=== PATIENT | male | born 1945 | race African-American/Black ===

== ENCOUNTER 2017-06-07 00:26 | Emergency (ER) | payer MEDICARE ==
--- NOTE | 2017-06-07 01:37 | ER Document Report ---
ED Extremity Problem, Lower - General Chief Complaint: Hip Pain Stated Complaint: hip pain Time Seen by Provider: 06/07/17 01:25 Notes: Patient is a 72-year-old male who comes emergency department for chief complaint of left leg pain. He states that he was moving logs several days ago , pain started afterwards, he states it does hurt to walk, he states he can situate his leg in such a way that he can sleep comfortably. He denies a fall or direct impact injury. Pain is persistent so he came to be evaluated. He does feel pain shoot down the side of his leg occasionally. He denies flank pain, abdominal pain, numbness, incontinence or inability to urinate, or fever. Patient is generally healthy, has a history of hypertension, CVA, his daughter is at bedside. TRAVEL OUTSIDE OF THE [place] IN LAST 30 DAYS: No - Related Data Allergies/Adverse Reactions: No Known Drug Allergies Allergy (Verified 06/07/17 00:27) Past Medical History - General Information source: Patient - Social History Smoking Status: Never Smoker Frequency of alcohol use: None Drug Abuse: None Lives with: Family Family History: Reviewed & Not Pertinent - Past Medical History Cardiac Medical History: Reports: Hx Hypertension Denies: Hx Coronary Artery Disease, Hx Heart Attack Endocrine Medical History: Denies: Hx Diabetes Mellitus Type 1, Hx Diabetes Mellitus Type 2 Psychiatric Medical History: Denies: Hx Depression - Immunizations Hx Diphtheria, Pertussis, Tetanus Vaccination: Yes Review of Systems - Review of Systems Constitutional: No symptoms reported EENT: No symptoms reported Cardiovascular: No symptoms reported Respiratory: No symptoms reported Gastrointestinal: No symptoms reported Genitourinary: No symptoms reported Male Genitourinary: No symptoms reported Musculoskeletal: See HPI Skin: No symptoms reported Hematologic/Lymphatic: No symptoms reported Neurological/Psychological: No symptoms reported Physical Exam - Vital signs Vitals: Temp Pulse Resp BP Pulse Ox 98.3 F 49 L 20 147/90 H 99 06/07/17 00:32 06/07/17 00:32 06/07/17 00:32 06/07/17 00:32 06/07/17 00:32 Interpretation: Normal - General General appearance: Appears well, Alert - HEENT Head: Normocephalic, Atraumatic Eyes: Normal Pupils: PERRL - Respiratory Respiratory status: No respiratory distress Chest status: Nontender Breath sounds: Normal Chest palpation: Normal - Cardiovascular Rhythm: Regular Heart sounds: Normal auscultation Murmur: No - Abdominal Inspection: Normal Distension: No distension Bowel sounds: Normal Tenderness: Nontender Organomegaly: No organomegaly - Back Back: Normal, Nontender - Extremities General upper extremity: Normal inspection, Nontender, Normal color, Normal ROM , Normal temperature General lower extremity: Other - Mild tenderness over the left proximal femoral bursa area and over the proximal thigh, no tenderness noted over the extremity otherwise, normal hip, knee, ankle range of motion, normal distal neurovascular exam. No traumatic findings. - Neurological Neuro grossly intact: Yes Cognition: Normal Orientation: AAOx4 [place] Coma Scale Eye Opening: Spontaneous [place] Coma Scale Verbal: Oriented [place] Coma Scale Motor: Obeys Commands Codey Coma Scale Total: 15 Speech: Normal Motor strength normal: LUE, RUE, LLE, RLE Sensory: Normal - Psychological Associated symptoms: Normal affect, Normal mood - Skin Skin Temperature: Warm Skin Moisture: Dry Skin Color: Normal Course - Re-evaluation Re-evalutation: Patient well-appearing, declines medication at this time, has full range of motion of the hip, knee, ankle, no significant tenderness or signs of injury. X -ray consistent with degenerative changes but no fracture or concerning abnormalities. Patient ambulates without any difficulty. No evidence of septic joint on examination. Discussed results, treatment, follow-up, return precautions. Patient and family state satisfaction and agreement. - Vital Signs Vital signs: Temp Pulse Resp BP Pulse Ox 97.9 F 53 L 17 147/74 H 98 06/07/17 03:21 06/07/17 03:21 06/07/17 03:21 06/07/17 03:21 06/07/17 03:21 Discharge - Discharge Clinical Impression: Left hip pain Condition: Stable Disposition: HOME, SELF-CARE Additional Instructions: Your examination and x-ray are consistent with arthritis but no fracture or other abnormality is seen. I recommend applying the topical patches and taking the prescribed medication if needed, if symptoms continue follow-up closely with your primary care provider. Return if you worsen including redness, severe pain, inability to walk, fever, numbness, or any other concerning or worsening symptoms. Prescriptions: Lidocaine [Lidoderm 5% (700 mg) Transdermal Patch] 1 patch TP DAILY #20 adh..patch Naproxen [Naprosyn 250 mg Tablet] 250 mg PO DAILY PRN #10 tablet PRN Reason: Referrals: LIBBY ROSS MD [Primary Care Provider] - Follow up as needed
--- NOTE | 2017-06-07 02:06 | RADIOLOGY REPORT (SQ) ---
EXAM DESCRIPTION: HIP LEFT AP/LATERAL CLINICAL HISTORY: pain, ? injury COMPARISON: None. FINDINGS: Single view of the pelvis and lateral view of the left hip. Mild bilateral hip joint space narrowing and marginal osteophytosis compatible with osteoarthritic change. No acute fracture identified. Normal osseous mineralization. Visualized sacrum and pelvic bones appear intact. IMPRESSION: 1. No acute fracture or dislocation.
[2017-06-07 03:26] VITALS: BP 147/74
== END 2017-06-07 03:25 | disposition home or self-care (01) ==
LOC: ER 00:26
DX: M25.552 Pain in left hip (principal); I10 Essential (primary) hypertension
CPT/HCPCS: 99283